=== PATIENT | female | born 1950 ===

== ENCOUNTER 2019-08-14 12:24 | Outpatient (CLI) | payer BC, MEDICAID, SELFPAY ==
--- NOTE | 2019-08-14 12:42 | ECG_ITS ---
NAME OF STUDY: TREADMILL STRESS TEST INDICATION: Chest Pain, EXERCISE DATA: The patient was exercised by Gibran protocol. Baseline heart rate was 71 beats per minute. Baseline blood pressure was 126/98 millimeters of mercury. Target heart rate was 152 beats per minute. Maximum heart rate achieved was 132, which was 86 % of the target heart rate. Maximum blood pressure was 237/96 millimeters of mercury. Total exercise time was 2 minutes 54 seconds. Maximum METs achieved was 4.6, maximum VO2 was 16.1. The reason for ending the test was excellent effort achieved. The patient complained of shortness of breath during the stress test, which then resolved at the end of the test. ELECTROCARDIOGRAM: BASELINE: Sinus rhythm, normal axis, old anterior wall myocardial infarction, no significant ST-T changes at the baseline noted. EXERCISE: At the peak exercise level, No significant ST-T changes suggestive of ischemia noted. RECOVERY: During the recovery period, heart rate dropped appropriately. No significant ST-T changes in the recovery suggestive of ischemia noted. CONCLUSION: 1. Exercise capacity poor. 2. Heart rate response was appropriate. 3. Blood pressure response was hypertensive]. 4. Symptoms not suggestive of ischemia. 5. Electrocardiogram portion of the stress test was not suggestive of ischemia. 6. Nuclear scan will be documented separately. Please note that due to poor exercise capacity and under achievement of METs specificity and sensitivity of the EKG portion of stress test will be low. Electronically Signed On 08-15-2019 15:12:24 PASSENGER AGENT by Cesar Wynn M.D. [email or web address]
[2019-08-14 12:49] VITALS: BMI 32.5
[2019-08-14 12:58] VITALS: BP 168/69; PULSE 98
== END 2019-08-14 12:25 | disposition home or self-care (01) ==
LOC: CDL 12:28
PROVIDERS: Visit Provider Nurse Practitioner Family
DX: R07.9 Chest pain, unspecified (principal)
CPT/HCPCS: 93017

== ENCOUNTER 2020-11-30 09:49 | Outpatient (CLI) | payer MEDICAID, SELFPAY ==
--- NOTE | 2020-11-30 09:53 | MM_ITS ---
WS: [id number] BILATERAL DIGITAL SCREENING MAMMOGRAPHY WITH CAD CLINICAL INFORMATION: SCREENING HISTORY: Screening mammogram. No current complaints. COMPARISON: None. TECHNIQUE: Bilateral CC and MLO views. FINDINGS: Scattered fibroglandular densities bilaterally. A few benign punctate calcifications. 6 mm slightly s piculated focal asymmetric density upper outer right breast posterior depth. Additional 6 mm asymmetr ic density outer right breast. Left breast is unremarkable MM/[place] [id number] IMPRESSION: BI-RADS: 0-Incomplete: Need additional imaging evaluation FOLLOW UP: Need Additional Imaging Recommend diagnostic mammography right breast with spot compression views and u ltrasound right breast
== END 2020-11-30 09:50 | disposition home or self-care (01) ==
PROVIDERS: PCP Family Medicine; Visit Provider Family Medicine
DX: Z12.31 Encounter for screening mammogram for malignant neoplasm of breast (principal)
CPT/HCPCS: 77067

== ENCOUNTER 2020-12-13 14:15 | Outpatient (CLI) | payer MEDICAID, SELFPAY ==
--- NOTE | 2020-12-13 14:25 | US_ITS ---
WS: [id number] RIGHT DIGITAL MAMMOGRAPHY WITH CAD CLINICAL INFORMATION: RIGHT ABNORMAL MAMMOGRAM COMPARISON: November 30, 2020 TECHNIQUE: 3 views of the right breast were obtained. FINDINGS: The right breast is composed of heterogeneous fibroglandular density tissue, which can limit the dete ction of small underlying mass lesions. Stable previously described 6 mm slightly spiculated focal as ymmetric density upper outer right breast posterior depth. Additional 6 mm asymmetric density outer r ight breast. Ultrasound is pending. ULTRASOUND BREAST RIGHT TECHNIQUE: Ultrasound right breast focused area of concern. CLINICAL INFORMATION: RIGHT ABNORMAL MAMMOGRAM FINDINGS: Ultrasound right breast at the 9 to 12:00 position. Dense underlying parenchymal tissue. No cystic or solid lesions. No suspicious findings. No lesions to target for biopsy. US/US breast RT limited* [id number] BI-RADS: 2-Benign FOLLOW UP: 1 Year Follow-up Recommend return to annual screening mammography.
== END 2020-12-13 14:16 | disposition home or self-care (01) ==
LOC: RADSHAW 14:17
PROVIDERS: PCP Family Medicine; Visit Provider Family Medicine
DX: R92.8 Other abnormal and inconclusive findings on diagnostic imaging of breast (principal)
CPT/HCPCS: 76642; 77065

== ENCOUNTER → 2021-01-13 12:10 | Outpatient (BNVA) | payer MEDICAID, SELFPAY | PROVIDERS: PCP Family Medicine; Visit Provider Surgery | DX: Z12.11 Encounter for screening for malignant neoplasm of colon (principal); Z20.822 Contact with and (suspected) exposure to COVID-19 | CPT/HCPCS: 87635 ==

== ENCOUNTER 2021-01-19 07:01 | Day surgery (SDC) | payer MEDICAID, SELFPAY ==
[2021-01-17 13:42] VITALS: BMI 32.5
[2021-01-19 07:34] VITALS: BP 157/87; PULSE 55; RESP 18; TEMP 36.2; O2SAT 99
--- NOTE | 2021-01-19 07:36 | ANES.PREANE2 ---
Pre-Anesthetic Assessment Pre-Anesthetic Assessment: Height/Weight: Height 1.63 m Weight 86.183 kg Proposed Procedure: Operation Date: 01/19/21 08:30 Proposed Procedures p Colonoscopy 58276 z12.11(Not Applicable) - Chaz Bermeo MD Was Beta Finn taken within 24 hours: Yes Was Clonidine taken within 24 hours: N/A Social: Social History: No alcohol and No tobacco Exam: Pre-Anes Outpt Exam: alert, oriented x 3, clear to auscultation bilaterally and regular rate & rhythm Airway: Submandibular: WNL Cervical ROM: WNL MP: 3 Dentition: Full CV/HEM: CV/HEM: HTN Metabolic: Metabolic: DM Anesthetic Plan: ASA status: 2 Anesthesia: MAC Risk of > 500 ml blood loss (7ml/kg in children): No Data Anesthesia Cardiac Studies: No Data to Display
[2021-01-19] MEDS: sodium chloride 0.9% 1,000 ML 30 ML IV (07:44)
[2021-01-19 07:48] LABS: Glucose Point of Care 215 mg/dL (70-110)
--- NOTE | 2021-01-19 08:26 | P.HP_ITS ---
Same Day Surgery H&P Indication for Procedure/HPI DATE OF PROCEDURE: January 19, 2021 CHIEF COMPLAINT/INDICATIONFOR SURGICAL PROCEDURE: Screening colonoscopy PREOP DIAGNOSIS: Screening colonoscopy PLANNED PROCEDRUE: Operation Date: 01/19/21 08:30 Proposed Procedures p Colonoscopy 67527 z12.11(Not Applicable) - Chaz Bermeo MD This is a pleasant 70-year-old female patient presents to my practice for screening colonoscopy, patient denies any bleeding per rectum or history of colon cancer. Most of the history was obtained from the daughter as the patient speaks Malawian/Urdu and the daughter was the main pad machine offbearer. ROS All systems have been reviewed negative except as per the above or per problem list Medications/Allergies* Home Medications Medication Instructions Recorded Confirmed Type glipizide 10 mg PO DAILY 12/01/20 01/17/21 History metformin 500 mg tablet,extended 500 mg PO BID 12/01/20 01/17/21 History release 24hr linagliptin [Tradjenta] 5 mg PO DAILY 01/17/21 01/17/21 History lisinopril 20 mg PO DAILY 01/17/21 01/17/21 History metoprolol tartrate 50 mg PO DAILY 01/17/21 01/17/21 History Allergies/Adverse Reactions Allergy/AdvReac Type Severity Reaction Status Date / Time No Known Allergies Allergy Unverified 01/19/21 08:31 Current Medications: Generic Name Dose Route Start Last Admin Trade Name Freq PRN Reason Stop Dose Admin Sodium Chloride 1,000 mls @ 30 mls/hr 01/19/21 07:15 01/19/21 07:44 Sodium Chloride 0.9% IV 01/20/21 07:14 30 mls/hr .Q24H [place] Administration Pertinent Exam Findings alert, oriented x 3, clear to auscultation bilaterally, regular rate & rhythm and procedure specific exam findings (Abdominal examination nontender nondistended soft) Recommendations Surgery/Procedure today (Colonoscopy with possible biopsy) Other Plans: Plan of care; After thorough history and physical examination and reviewing the chart, plan to perform screening colonoscopy. I discussed with the patient in details the risks,benefits,alternatives and indications.The risk of aspiration, bleeding, soft tissue injury, perforation of the colon and other potential concomitant complications were explained to the patient in details,also the potential need for Laproscoy/Laparotomy to repair any related complications including but not limited to colectomy and or Closotomy.The patient understood this well and did agree to proceed. Rationale was carefully and clearly discussed with the patient.Appropriate informed consent have been reviewed and signed All questions have been answered and all concerns have been addressed to patient's satisfaction. Verbal and written Instructions were given to the patient for colonoscopy prep Coding Level of Care Code Acute Head Filter Tank Tender Helper for Barrera Taylor
[2021-01-19 09:00] VITALS: BP 104/53; PULSE 59; RESP 19; TEMP 36.6; O2SAT 97
[2021-01-19 09:14] VITALS: BP 135/73; PULSE 52; RESP 18; O2SAT 99
--- NOTE | 2021-01-19 17:07 | ANE.PACU2 ---
Inpatient post-anesthesia follow up: Airway intact: Yes Vital signs: Temperature 97.9 F Pulse Rate 52 Respiratory Rate 18 Blood Pressure 135/73 Pulse Oximetry 99 Oxygen Delivery Me thod Room Air Oxygen Flow Rate Fraction of Inspir ed Oxygen Hydration adequate: Yes Nausea and vomiting: No Pain level: 1 Mental status: Baseline
== END 2021-01-19 09:25 | disposition home or self-care (01) ==
PROVIDERS: PCP Family Medicine; Visit Provider Surgery
PROC: 0DJD8ZZ Inspection of Lower Intestinal Tract, Via Natural or Artificial Opening Endoscopic (ICD-10-PCS; CPT 45378; principal; 2021-01-19 08:30)
DX: Z12.11 Encounter for screening for malignant neoplasm of colon (principal); K63.5 Polyp of colon; I10 Essential (primary) hypertension; E11.9 Type 2 diabetes mellitus without complications
CPT/HCPCS: 36416; 45380; 45385; 82962; 88305; 96360; 96361; J2704; J7030

== ENCOUNTER 2021-06-07 15:26 | Outpatient (CLI) | payer MEDICAID, SELFPAY ==
--- NOTE | 2021-06-07 15:45 | USCV_ITS ---
Lauren Nava Age: 70 Gender: F : 1950 Exam Date: 06/07/2021 16:01 Ordering Phys: Yamileth Alexander MD ([email or web address]) Technologist: SHERYL Exam Location: [facility] – [place] Indication: DYSPNEA BP: 120 / 60 HR: 64 Rhythm: Sinus Technical Quality: Adequate MEASUREMENTS (Male / Female) Normal Values 2D ECHO LV Diastolic Diameter PLAX 3.1 cm 4.2 - 5.9 / 3.9 - 5.3 cm LV Systolic Diameter PLAX 2.1 cm IVS Diastolic Thickness 1.2 cm 0.6 - 1.0 / 0.6 - 0.9 cm IVS Systolic Thickness 1.5 cm LVPW Diastolic Thickness 1.4 cm 0.6 - 1.0 / 0.6 - 0.9 cm LVPW Systolic Thickness 1.4 cm RV Chamber Size 2.5 cm LVOT Diameter 2.0 cm LV Ejection Fraction 2D Teich 62.8 % LV Ejection Fraction MOD 2C 69.7 % LV Ejection Fraction 2C AL 71.1 % LA Diameter 3.7 cm LA Width 2.7 cm LA Height 3.9 cm RA Width 4.2 cm RA Height 3.9 cm Aorta at Sinotubular Diameter 1.9 cm M-MODE Aortic Annulus Diameter 2.4 cm LA Ao Ratio MM 1.7 MV E Point Septal Separation 0.5 cm DOPPLER AV Peak Velocity 161.0 cm/s LVOT Peak Velocity 104.0 cm/s AV Area Cont Eq vti 2.3 cm squared AV Area Cont Eq pk 2.0 cm squared MV Area PHT 3.5 cm squared Mitral E to A Ratio 0.9 MV E' Velocity 44.5 cm/s Mitral E to MV E' Ratio 14.5 Mitral E to LV E' Lateral Ratio 13.4 Mitral E to LV E' Septal Ratio 15.9 TR Peak Velocity 238.0 cm/s TR Peak Gradient 22.7 mmHg TV Peak E Velocity 55.0 cm/s Right Atrial Pressure 3.0 mmHg Pulmonary Artery Systolic Pressu 25.7 mmHg PV Peak Velocity 106.3 cm/s RV Acceleration Time 0.2 s RV Ejection Time 0.4 s RV AcT/ET 0.5 FINDINGS Left Ventricle Normal left ventricular size and systolic function, EF 66 %. Mild left ventricular hypertrophy. Grade I/IV diastolic dysfunction (abnormal relaxation filling pattern), normal to mildly elevated filling pressures. Right Ventricle The right ventricle is normal in size and function. Right Atrium Upper limit of normal size Left Atrium Upper limit of normal size Mitral Valve Morphology could not be delineated well Aortic Valve Thickened aortic valve. Tricuspid Valve Morphology could not be delineated well Pulmonic Valve Pulmonic valve not well visualized. Pericardium No pericardial effusion. Aorta Normal ascending aorta dimension. CONCLUSIONS Normal left ventricular size and systolic function, EF 66 %. Mild left ventricular hypertrophy. Grade I/IV diastolic dysfunction (abnormal relaxation filling pattern), normal to mildly elevated filling pressures. Segmental wall motion analysis difficult Both atria, appears to be upper limit of normal size. Thickened aortic valve. There is no pericardial effusion. Technically difficult study because of the poor ultrasonic window Dr Yamileth Alexander MD FACC (Electronically Signed) Final Date: 08 June 2021 18:49 S
== END 2021-06-07 15:27 | disposition home or self-care (01) ==
LOC: RAD 15:28
PROVIDERS: PCP Family Medicine; Visit Provider Internal Medicine Cardiovascular Disease
DX: R06.00 Dyspnea, unspecified (principal); R07.89 Other chest pain; I35.8 Other nonrheumatic aortic valve disorders
CPT/HCPCS: 93306

== ENCOUNTER → 2021-07-04 13:00 | Outpatient (BNVA) | payer MEDICAID, SELFPAY | PROVIDERS: PCP Family Medicine; Visit Provider Internal Medicine | DX: E11.69 Type 2 diabetes mellitus with other specified complication (principal); E78.5 Hyperlipidemia, unspecified; Z79.84 Long term (current) use of oral hypoglycemic drugs; Z79.899 Other long term (current) drug therapy | CPT/HCPCS: 99204 ==

== ENCOUNTER → 2021-10-03 11:26 | Outpatient (BNVA) | payer MEDICAID, SELFPAY | PROVIDERS: PCP Family Medicine; Visit Provider Internal Medicine | DX: E11.69 Type 2 diabetes mellitus with other specified complication (principal); E78.2 Mixed hyperlipidemia; Z79.84 Long term (current) use of oral hypoglycemic drugs | CPT/HCPCS: 99214 ==

== ENCOUNTER → 2022-01-02 10:29 | Outpatient (BNVA) | payer MEDICAID, SELFPAY | PROVIDERS: PCP Family Medicine; Visit Provider Internal Medicine | DX: E11.69 Type 2 diabetes mellitus with other specified complication (principal); E78.2 Mixed hyperlipidemia; E78.5 Hyperlipidemia, unspecified; E55.9 Vitamin D deficiency, unspecified; Z79.84 Long term (current) use of oral hypoglycemic drugs | CPT/HCPCS: 99214 ==

== ENCOUNTER → 2022-04-03 11:07 | Outpatient (BNVA) | payer MEDICAID, SELFPAY | PROVIDERS: PCP Family Medicine; Visit Provider Internal Medicine | DX: E11.69 Type 2 diabetes mellitus with other specified complication (principal); E78.2 Mixed hyperlipidemia; E55.9 Vitamin D deficiency, unspecified; E78.5 Hyperlipidemia, unspecified; Z79.84 Long term (current) use of oral hypoglycemic drugs | CPT/HCPCS: 99214 ==

== ENCOUNTER → 2022-07-04 09:00 | Outpatient (BNVA) | payer MEDICAID, SELFPAY | PROVIDERS: PCP Family Medicine; Visit Provider Internal Medicine | DX: E11.69 Type 2 diabetes mellitus with other specified complication (principal); E78.2 Mixed hyperlipidemia; E55.9 Vitamin D deficiency, unspecified; E78.5 Hyperlipidemia, unspecified; E04.1 Nontoxic single thyroid nodule; Z79.84 Long term (current) use of oral hypoglycemic drugs | CPT/HCPCS: 99214 ==

== ENCOUNTER → 2022-08-03 09:52 | Outpatient (BNVA) | payer MEDICAID, SELFPAY | PROVIDERS: PCP Family Medicine; Visit Provider Internal Medicine Cardiovascular Disease | DX: R42 Dizziness and giddiness (principal); I49.1 Atrial premature depolarization; I49.3 Ventricular premature depolarization; R00.0 Tachycardia, unspecified | CPT/HCPCS: 93225 ==

== ENCOUNTER 2022-08-28 07:01 | Outpatient (CLI) | payer MEDICAID, SELFPAY ==
--- NOTE | 2022-08-28 07:15 | US_ITS ---
WS: [id number] ULTRASOUND THYROID TECHNIQUE: Ultrasound of the thyroid. CLINICAL INFORMATION: thyroid nodule COMPARISON: None. FINDINGS: Thyroid: Right and left thyroid lobes are normal in size and echotexture. Right thyroid lobe: 3.2 cm x 1.5 cm x 1.5 cm Small hypoechoic RIGHT thyroid nodule in the upper pole with a few echogenic calcifications. Nodule m easures 7.4 x 3.9 x 7.5 mm. Left thyroid lobe: 3.7 cm x 1.2 cm x 1.3 cm. Isthmus: 0.3 mm. Prominent submandibular lymph nodes with preserved fatty hilum measuring 1.5 x 0.9 cm in the RIGHT a nd 2.0 x 1.5 cm in the LEFT. US/US thyroid [id number] IMPRESSION: 1. Small hypoechoic RIGHT thyroid nodule in the upper pole with a few echogeni c calcifications. Nodule measures 7.4 x 3.9 x 7.5 mm. Recommend 12 month follow -up. 2. No nodules LEFT thyroid. 3. Prominent submandibular lymph nodes with preserved fatty hilum measuring 1 .5 x 0.9 cm in the RIGHT and 2.0 x 1.5 cm in the LEFT. Recommend clinical corre lation. These can be followed up with contrast-enhanced neck CT if indicated.
== END 2022-08-28 07:02 | disposition home or self-care (01) ==
LOC: RAD 07:04
PROVIDERS: PCP Family Medicine; Visit Provider Internal Medicine
DX: E04.1 Nontoxic single thyroid nodule (principal)
CPT/HCPCS: 76536

== ENCOUNTER 2022-09-05 11:31 | Outpatient (CLI) | payer MEDICAID, SELFPAY ==
--- NOTE | 2022-09-05 11:39 | MR_ITS ---
WS: [id number] MRA HEAD TECHNIQUE: Axial 3-D TOF images obtained with axial images and axial, sagittal, and coronal 2-D refor matted images. CLINICAL INFORMATION: VERTEBROBASILAR INSUFFICIENCY/OTHER PERIPHERAL VERTIGO COMPARISON: None. FINDINGS: Distal vertebral arteries are patent. Basilar artery is patent. Normal vascularity to the [employer]RA[employer] MARKET OPERATOR territo ry bilaterally. Both ICAs are patent at the skull base. Normal vascularity to the SAMANTHA and MCA territories bilaterally . No evidence of proximal flow limiting stenosis or aneurysm. MR/MR angio head wo con [id number] IMPRESSION: Normal intracranial MRA.
== END 2022-09-05 11:32 | disposition home or self-care (01) ==
PROVIDERS: PCP Family Medicine; Visit Provider Internal Medicine
DX: H53.9 Unspecified visual disturbance (principal); H81.399 Other peripheral vertigo, unspecified ear
CPT/HCPCS: 70544

== ENCOUNTER 2022-09-15 15:06 | Outpatient (CLI) | payer MEDICAID, SELFPAY ==
--- NOTE | 2022-09-15 15:15 | MR_ITS ---
WS: [id number] MRI BRAIN WITH HIGH-RESOLUTION IMAGING THROUGH THE INTERNAL AUDITORY CANALS WITHOUT CONTRAST HISTORY: VERTEBROBASILAR INSUFFICIENCES/VISUAL DISTURBANCES/VERTIGO COMPARISON: None available. TECHNIQUE: Multiplanar, multisequence imaging is performed through the brain. Additional 3 mm imaging performed in multiple planes through the internal auditory canal. No postcontrast imaging done as IV access was not obtained. No acute intracranial hemorrhage, midline shift, edema or mass effect. Mild atrophy. Symmetric atrophy with very mild small vessel ischemic disease. No prior infarct. Ventr icles and extra-axial spaces are very mildly prominent on the basis of atrophy. Ventricles and extra-axial spaces are normal. No inferior displacement of cerebellar tonsils. Clivus and pituitary gland are normal. Internal and external auditory canals: Unremarkable. Cranial nerves VII and VIII complexes: Unremarkable without IV contrast. No signal abnormality or mas s effect. Cerebellopontine angles: Normal. LEFT parotid mass measures 12 x 6 mm. Slightly lobulated in the superficial parotid gland. Recommend ultrasound evaluation. Paranasal sinuses: Mucous retention cyst RIGHT maxillary sinus. Mastoid air cells: Normal. Calvarium and scalp: Normal. MR/MR iac's wo con [id number] IMPRESSION: 1. No signal abnormality or mass noted along the internal auditory canals. No IV access was obtainable. Study was performed without IV contrast. 2. Mild cerebral atrophy and small vessel ischemic disease. 3. Lobulated superficial LEFT parotid mass measures 12 x 6 mm. Recommend follo w-up ultrasound.
== END 2022-09-15 15:07 | disposition home or self-care (01) ==
PROVIDERS: PCP Family Medicine; Visit Provider Internal Medicine
DX: H53.9 Unspecified visual disturbance (principal); H81.399 Other peripheral vertigo, unspecified ear; G31.9 Degenerative disease of nervous system, unspecified; I67.82 Cerebral ischemia; R22.0 Localized swelling, mass and lump, head
CPT/HCPCS: 70551

== ENCOUNTER → 2022-10-04 10:48 | Outpatient (BNVA) | payer MEDICAID, SELFPAY | PROVIDERS: PCP Family Medicine; Visit Provider Internal Medicine | DX: E11.69 Type 2 diabetes mellitus with other specified complication (principal); E78.2 Mixed hyperlipidemia; E55.9 Vitamin D deficiency, unspecified; E78.5 Hyperlipidemia, unspecified; E04.1 Nontoxic single thyroid nodule; Z79.84 Long term (current) use of oral hypoglycemic drugs | CPT/HCPCS: 99214 ==

== ENCOUNTER 2022-10-17 14:40 | Outpatient (CLI) | payer MEDICAID, SELFPAY ==
--- NOTE | 2022-10-17 14:52 | US_ITS ---
WS: [id number] ULTRASOUND SOFT TISSUES LEFT parotid. HISTORY: PAROTID MASS, LEFT COMPARISON: MRI 09/15/2022. TECHNIQUE: 2-D and color Doppler imaging is submitted. There is a hypoechoic mass with slight through transmission in the LEFT parotid gland. This appears t o be within the superficial portion of the parotid gland and corresponds to the abnormality seen on t he recent MRI. Mass measures 1.3 x 1.4 x 0.6 cm. Slightly lobulated contour. This does not appear to be a lymph node. There is an additional more superficial similar hypoechoic nodule measuring 0.4 cm i n diameter. No additional abnormalities are identified. US/US soft tissue head neck [id number] IMPRESSION: Superficial LEFT parotid hypoechoic mass measures 1.3 x 1.4 x 0.6 cm. Consider evaluation by ENT. Consider Warthin's tumor. Imaging cannot differentiate betwe en benign and neoplastic etiologies.
== END 2022-10-17 14:41 | disposition home or self-care (01) ==
PROVIDERS: PCP Family Medicine; Visit Provider Family Medicine
DX: K11.8 Other diseases of salivary glands (principal)
CPT/HCPCS: 76536

== ENCOUNTER 2022-10-18 09:26 | Outpatient (CLI) | payer MEDICAID, SELFPAY ==
--- NOTE | 2022-10-18 09:43 | XR_ITS ---
WS: [id number] EXAMINATION: XR foot RT 2V [id number] REASON FOR EXAM: R ACHILLES TENDONITIS/PAIN SWELLING COMPARISON: None available. ORDER DATE: 10/18/2022 9:50 AM TECHNIQUE: 3 views of the right foot were obtained. X-RAY FINDINGS: There are no fractures or dislocations there are prominent degenerative changes involving the through out the midtarsal region. No focal abnormal soft tissue swelling. Joint spaces demonstrate mild diffu se narrowing. Hammertoe changes involving some of the mid toes. 1 cm sized plantar calcaneal spur and smaller dorsal calcaneal spur. XR/XR foot RT 2V [id number] IMPRESSION: No fractures or dislocations of the right foot. Generalized degenerative change s as noted.
== END 2022-10-18 09:27 | disposition home or self-care (01) ==
PROVIDERS: PCP Family Medicine; Visit Provider Family Medicine
DX: M76.61 Achilles tendinitis, right leg (principal); M19.071 Primary osteoarthritis, right ankle and foot
CPT/HCPCS: 73620

== ENCOUNTER → 2023-01-10 10:47 | Outpatient (BNVA) | payer MEDICAID, SELFPAY | PROVIDERS: PCP Family Medicine; Visit Provider Internal Medicine | DX: E11.69 Type 2 diabetes mellitus with other specified complication (principal); E78.2 Mixed hyperlipidemia; E55.9 Vitamin D deficiency, unspecified; E04.1 Nontoxic single thyroid nodule; Z79.84 Long term (current) use of oral hypoglycemic drugs | CPT/HCPCS: 99214 ==

== ENCOUNTER 2023-01-11 13:31 | Outpatient (CLI) | payer MEDICAID, SELFPAY ==
--- NOTE | 2023-01-11 13:44 | US_ITS ---
WS: [id number] ULTRASOUND SOFT TISSUE NECK INDICATION: LEFT parotid mass TECHNIQUE: Ultrasound LEFT parotid COMPARISON: October 17, 2022 MRI September 15, 2022 FINDINGS: T2 hyperintense Superficial LEFT parotid mass previously visualized on the September 15, 2022 M RI. Hypoechoic lobulated partially cystic appearing LEFT parotid lesion measuring 1.3 x 1.3 x 0.6 cm unch anged in appearance compared to previous. Adjacent intraparotid lymph node. This remains indeterminan t and recommend further evaluation with contrast-enhanced neck CT to assess enhancement and ENT evalu ation. Previously described hypoechoic 4 mm adjacent lesion is unchanged. US/US soft tissue head neck [id number] IMPRESSION: Again seen is the lobulated hypoechoic partially cystic LEFT paroti d lesion unchanged since the prior examinations. This is nonspecific and recomm end further evaluation with contrast-enhanced neck CT and ENT evaluation. Benign and malignant parotid lesions are considerations.
== END 2023-01-11 13:32 | disposition home or self-care (01) ==
PROVIDERS: PCP Family Medicine; Visit Provider Family Medicine
DX: K11.8 Other diseases of salivary glands (principal)
CPT/HCPCS: 76536

== ENCOUNTER → 2023-01-29 10:15 | Outpatient (BNVA) | payer MEDICAID, SELFPAY | PROVIDERS: PCP Family Medicine; Visit Provider Podiatrist Foot & Ankle Surgery | DX: M76.61 Achilles tendinitis, right leg | CPT/HCPCS: 99203 ==

== ENCOUNTER 2023-04-03 08:28 | Outpatient (CLI) | payer MEDICAID, SELFPAY ==
[2023-04-03 09:36] LABS: Alanine Aminotransferase 21 U/L (0-33); Albumin Level 4.4 g/dL (3.5-5.2); Alkaline Phosphatase 83 U/L (35-105); Anion Gap 13.2 (5-19); Aspartate Amino Transferase 20 U/L (0-32); Blood Urea Nitrogen 12 mg/dL (8-23); Calcium 9.4 mg/dL (8.5-10.5); Carbon Dioxide 26 mmol/L (22-29); Chloride 101 mmol/L (98-107); Chol HDL Ratio 4.29 mg/dL (0.0-4.40); Cholesterol 236 mg/dL (0-200); Glucose 190 mg/dL (65-115); HDL Cholesterol 55 mg/dL (60-100); LDL Cholesterol Calculated 143 mg/dL (50-129); Osmolality Calculated 287 mOsm/kg (285-295); Potassium 4.2 mmol/L (3.5-5.1); Sodium 136 mmol/L (136-145); Total Bilirubin 0.3 mg/dL (0.15-1.2); Total Protein 7.4 g/dL (6.6-8.7); Triglycerides 191 mg/dL (0-150)
[2023-04-03 09:42] LABS: Estmated Average Glucose 189; Hemoglobin A1C 8.2 % (4.0-6.0)
[2023-04-03 09:45] LABS: Creatinine Urine, Random 96 mg/dL (28-217); Microalbum Creatinine Ratio Ur 10 mg/dL (0-20); Microalbumin Random Urine 1 ug/dL (0-20)
== END 2023-04-03 08:29 | disposition home or self-care (01) ==
PROVIDERS: PCP Family Medicine; Visit Provider Internal Medicine
DX: E11.9 Type 2 diabetes mellitus without complications (principal)
CPT/HCPCS: 80053; 80061; 82044; 83036

== ENCOUNTER → 2023-04-16 10:58 | Outpatient (BNVA) | payer MEDICAID, SELFPAY | PROVIDERS: PCP Family Medicine; Visit Provider Internal Medicine | DX: E78.2 Mixed hyperlipidemia; E11.69 Type 2 diabetes mellitus with other specified complication; E55.9 Vitamin D deficiency, unspecified; E78.5 Hyperlipidemia, unspecified; E04.1 Nontoxic single thyroid nodule; Z79.84 Long term (current) use of oral hypoglycemic drugs | CPT/HCPCS: 99214 ==

== ENCOUNTER 2023-07-05 07:57 | Outpatient (CLI) | payer MEDICAID, SELFPAY ==
[2023-07-05 08:37] LABS: Alanine Aminotransferase 21 U/L (0-33); Albumin Level 4.4 g/dL (3.5-5.2); Alkaline Phosphatase 87 U/L (35-105); Aspartate Amino Transferase 19 U/L (0-32); Blood Urea Nitrogen 10 mg/dL (8-23); Calcium 9.7 mg/dL (8.5-10.5); Carbon Dioxide 26 mmol/L (22-29); Chloride 101 mmol/L (98-107); Chol HDL Ratio 2.77 mg/dL (0.0-4.40); Cholesterol 166 mg/dL (0-200); Globulin 2.9 g/dL (1.3-4.6); Glucose 190 mg/dL (65-115); HDL Cholesterol 60 mg/dL (60-100); LDL Cholesterol Calculated 78 mg/dL (50-129); Osmolality Calculated 286 mOsm/kg (285-295); Sodium 136 mmol/L (136-145); Total Bilirubin 0.5 mg/dL (0.15-1.2); Total Protein 7.3 g/dL (6.6-8.7); Triglycerides 142 mg/dL (0-150)
[2023-07-05 08:40] LABS: Anion Gap 13.3 (5-19); Potassium 4.3 mmol/L (3.5-5.1)
[2023-07-05 08:47] LABS: Creatinine Urine, Random 131 mg/dL (28-217); Microalbum Creatinine Ratio Ur 8 mg/dL (0-20); Microalbumin Random Urine 1 ug/dL (0-20)
[2023-07-05 09:30] LABS: Estmated Average Glucose 200; Hemoglobin A1C 8.6 % (4.0-6.0)
== END 2023-07-05 07:58 | disposition home or self-care (01) ==
LOC: LAB 07:58
PROVIDERS: PCP Family Medicine; Visit Provider Internal Medicine
DX: E11.9 Type 2 diabetes mellitus without complications (principal)
CPT/HCPCS: 36415; 80053; 80061; 82044; 83036

== ENCOUNTER → 2023-08-03 09:54 | Outpatient (BNVA) | payer MEDICAID, SELFPAY | PROVIDERS: PCP Family Medicine; Visit Provider Internal Medicine | DX: E78.2 Mixed hyperlipidemia (principal); E11.69 Type 2 diabetes mellitus with other specified complication; E55.9 Vitamin D deficiency, unspecified; E04.1 Nontoxic single thyroid nodule; Z79.84 Long term (current) use of oral hypoglycemic drugs | CPT/HCPCS: 99214 ==

== ENCOUNTER 2023-10-08 07:59 | Outpatient (CLI) | payer MEDICAID, SELFPAY ==
[2023-10-08 08:52] LABS: Estmated Average Glucose 174; Hemoglobin A1C 7.7 % (4.0-6.0)
[2023-10-08 08:55] LABS: Alanine Aminotransferase 19 U/L (0-33); Alkaline Phosphatase 82 U/L (35-105); Anion Gap 15.5 (5-19); Aspartate Amino Transferase 17 U/L (0-32); Blood Urea Nitrogen 11 mg/dL (8-23); Calcium 9.4 mg/dL (8.5-10.5); Carbon Dioxide 24 mmol/L (22-29); Chloride 102 mmol/L (98-107); Chol HDL Ratio 3.11 mg/dL (0.0-4.40); Cholesterol 174 mg/dL (0-200); Glucose 187 mg/dL (65-115); HDL Cholesterol 56 mg/dL (60-100); LDL Cholesterol Calculated 89 mg/dL (50-129); LDL HDL Ratio 1.59 RATIO (0.00-3.22); Osmolality Calculated 288 mOsm/kg (285-295); Potassium 4.5 mmol/L (3.5-5.1); Sodium 137 mmol/L (136-145); Total Bilirubin 0.4 mg/dL (0.15-1.2); Triglycerides 143 mg/dL (0-150)
[2023-10-08 08:57] LABS: Creatinine Urine, Random 74 mg/dL (28-217); Microalbum Creatinine Ratio Ur 14 mg/dL (0-20); Microalbumin Random Urine 1 ug/dL (0-20)
== END 2023-10-08 08:00 | disposition home or self-care (01) ==
LOC: LAB 08:00
PROVIDERS: PCP Family Medicine; Visit Provider Internal Medicine
DX: E11.69 Type 2 diabetes mellitus with other specified complication (principal); E78.2 Mixed hyperlipidemia; E78.5 Hyperlipidemia, unspecified
CPT/HCPCS: 36415; 80053; 80061; 82044; 83036

== ENCOUNTER → 2023-11-23 08:37 | Outpatient (BNVA) | payer MEDICAID, SELFPAY | PROVIDERS: PCP Family Medicine; Visit Provider Internal Medicine | DX: E78.2 Mixed hyperlipidemia (principal); E11.69 Type 2 diabetes mellitus with other specified complication; E55.9 Vitamin D deficiency, unspecified; E78.5 Hyperlipidemia, unspecified; E04.1 Nontoxic single thyroid nodule; Z79.84 Long term (current) use of oral hypoglycemic drugs; Z79.85 Long-term (current) use of injectable non-insulin antidiabetic drugs | CPT/HCPCS: 99214 ==

== ENCOUNTER 2024-02-20 08:40 | Outpatient (CLI) | payer MEDICARE, MEDICAID, SELFPAY ==
[2024-02-20 09:43] LABS: Estmated Average Glucose 180; Hemoglobin A1C 7.9 % (4.0-6.0)
[2024-02-20 09:51] LABS: Alanine Aminotransferase 17 U/L (0-33); Albumin Level 4.2 g/dL (3.5-5.2); Alkaline Phosphatase 77 U/L (35-105); Anion Gap 13.7 (5-19); Aspartate Amino Transferase 17 U/L (0-32); Blood Urea Nitrogen 12 mg/dL (8-23); Calcium 9.6 mg/dL (8.5-10.5); Carbon Dioxide 27 mmol/L (22-29); Chloride 101 mmol/L (98-107); Chol HDL Ratio 3.62 mg/dL (0.0-4.40); Cholesterol 188 mg/dL (0-200); Globulin 2.8 g/dL (1.3-4.6); Glucose 181 mg/dL (65-115); HDL Cholesterol 52 mg/dL (60-100); LDL Cholesterol Calculated 96 mg/dL (50-129); LDL HDL Ratio 1.85 RATIO (0.00-3.22); Osmolality Calculated 288 mOsm/kg (285-295); Potassium 4.7 mmol/L (3.5-5.1); Sodium 137 mmol/L (136-145); Total Bilirubin 0.5 mg/dL (0.15-1.2); Triglycerides 201 mg/dL (0-150)
[2024-02-20 09:54] LABS: Creatinine Urine, Random 90 mg/dL (28-217); Microalbum Creatinine Ratio Ur 11 mg/dL (0-20); Microalbumin Random Urine 1 ug/dL (0-20)
== END 2024-02-20 08:41 | disposition home or self-care (01) ==
PROVIDERS: PCP Family Medicine; Visit Provider Internal Medicine
DX: E78.2 Mixed hyperlipidemia (principal); E11.69 Type 2 diabetes mellitus with other specified complication
CPT/HCPCS: 36415; 80053; 80061; 82044; 83036

== ENCOUNTER → 2024-02-26 08:55 | Outpatient (BNVA) | payer MEDICARE, OTHER, MEDICAID, SELFPAY | PROVIDERS: PCP Family Medicine; Visit Provider Internal Medicine | DX: E11.69 Type 2 diabetes mellitus with other specified complication (principal); E78.2 Mixed hyperlipidemia; E55.9 Vitamin D deficiency, unspecified; E78.5 Hyperlipidemia, unspecified; E04.1 Nontoxic single thyroid nodule; Z79.4 Long term (current) use of insulin; Z79.84 Long term (current) use of oral hypoglycemic drugs | CPT/HCPCS: 99214 ==

== ENCOUNTER 2024-03-12 14:17 | Outpatient (CLI) | payer MEDICARE, MEDICAID, SELFPAY ==
--- NOTE | 2024-03-12 14:28 | XR_ITS ---
WS: [id number] SCREENING DEXA SCAN [employer] CLINICAL INFORMATION: POSTMENOPAUSAL COMPARISON: None. FINDINGS: The L1-L4 bone mineral density measures 1.120 g/cm2. This corresponds to a T score score of -0.5 Left femoral neck bone mineral density measures 0.937 g/cm2. This corresponds to a T score of -0.6 Right femoral neck bone mineral density measures 0.902 g/cm2. This corresponds to a T score -0.8 Mean femoral neck bone mineral density measures 0.919 g/cm2. This corresponds to a T score of -0.7 XR/XR DEXA axial skeleton* [id number] IMPRESSION: Normal bone mineralization. Patient's FRAX calculated 10 year probability for major osteoporotic fracture i s 9.9% and osteoporotic hip fracture is 1.7%.
== END 2024-03-12 14:18 | disposition home or self-care (01) ==
LOC: RAD 14:18
PROVIDERS: PCP Family Medicine; Visit Provider Family Medicine
DX: Z13.820 Encounter for screening for osteoporosis (principal); Z78.0 Asymptomatic menopausal state
CPT/HCPCS: 77080

== ENCOUNTER → 2024-05-15 14:49 | Outpatient (BNVA) | payer MEDICARE, MEDICAID, SELFPAY | PROVIDERS: PCP Family Medicine; Referring Provider Family Medicine; Visit Provider Nurse Practitioner Family | DX: L72.0 Epidermal cyst (principal); L57.0 Actinic keratosis; L57.8 Other skin changes due to chronic exposure to nonionizing radiation; L81.4 Other melanin hyperpigmentation; D22.5 Melanocytic nevi of trunk | CPT/HCPCS: 99203 ==

== ENCOUNTER 2024-06-02 07:47 | Outpatient (CLI) | payer MEDICARE, MEDICAID, SELFPAY ==
[2024-06-02 08:59] LABS: Basophils # 0.1 10^3/uL (0.0-0.1); Basophils % 1.5 %; Eosinophils # 0.3 10^3/uL (0.0-0.8); Eosinophils % 3.5 %; Hematocrit 40.7 % (36-47); Lymphocytes # 3.1 10^3/uL (0.8-4.8); Lymphocytes % 38.8 %; Mean Corpuscular Hemoglobin 26.9 pg (27-33); Monocytes # 0.6 10^3/uL (0.2-0.9); Monocytes % 6.8 %; Neutrophils # 3.95 10^3/uL (1.8-7.7); Nucleated Red Blood Cells % 0 %; Platelet Count 290 10^3/cmm (157-399); Red Blood Count 4.68 10^6/uL (3.85-5.65); Red Cell Distribution Width 13.5 % (12.1-15.1); White Blood Count 8.06 10^3/uL (3.29-11.43)
[2024-06-02 09:08] LABS: Alanine Aminotransferase 14 U/L (0-33); Alkaline Phosphatase 79 U/L (35-105); Anion Gap 13.3 (5-19); Aspartate Amino Transferase 15 U/L (0-32); Blood Urea Nitrogen 12 mg/dL (8-23); Calcium 9.6 mg/dL (8.5-10.5); Carbon Dioxide 25 mmol/L (22-29); Chloride 98 mmol/L (98-107); Chol HDL Ratio 3.65 mg/dL (0.0-4.40); Cholesterol 186 mg/dL (0-200); Glucose 164 mg/dL (65-115); HDL Cholesterol 51 mg/dL (60-100); LDL Cholesterol Calculated 102 mg/dL (50-129); Osmolality Calculated 277 mOsm/kg (285-295); Potassium 4.3 mmol/L (3.5-5.1); Sodium 132 mmol/L (136-145); Total Bilirubin 0.4 mg/dL (0.15-1.2); Triglycerides 164 mg/dL (0-150)
[2024-06-02 09:35] LABS: Creatinine Urine, Random 101 mg/dL (28-217); Microalbum Creatinine Ratio Ur 10 mg/dL (0-20); Microalbumin Random Urine 1 ug/dL (0-20)
[2024-06-02 09:51] LABS: Estmated Average Glucose 189; Hemoglobin A1C 8.2 % (4.0-6.0)
== END 2024-06-02 07:48 | disposition home or self-care (01) ==
LOC: LAB 07:49
PROVIDERS: PCP Family Medicine; Visit Provider Internal Medicine
DX: R23.3 Spontaneous ecchymoses (principal); E11.69 Type 2 diabetes mellitus with other specified complication; E78.2 Mixed hyperlipidemia
CPT/HCPCS: 36415; 80053; 80061; 82044; 83036; 85025

== ENCOUNTER → 2024-06-04 09:14 | Outpatient (BNVA) | payer MEDICARE, MEDICAID, SELFPAY | PROVIDERS: PCP Family Medicine; Visit Provider Internal Medicine | DX: E78.2 Mixed hyperlipidemia (principal); E11.69 Type 2 diabetes mellitus with other specified complication; E55.9 Vitamin D deficiency, unspecified; E04.1 Nontoxic single thyroid nodule; Z79.84 Long term (current) use of oral hypoglycemic drugs; Z79.85 Long-term (current) use of injectable non-insulin antidiabetic drugs | CPT/HCPCS: 99214 ==

== ENCOUNTER 2024-06-30 16:14 | Outpatient (CLI) | payer MEDICARE, MEDICAID, SELFPAY ==
--- NOTE | 2024-06-30 16:24 | US_ITS ---
WS: [id number] ULTRASOUND SOFT TISSUES LEFT parotid gland HISTORY: PAROTID MASS COMPARISON: 01/11/2023, 10/17/2022 TECHNIQUE: 2-D and color Doppler imaging is submitted. Patient has a known previously described parotid gland mass. LEFT parotid gland is identified and con tains a complex cystic nodule with a solid component. The entire complex measures 1.5 x 0.9 x 0.9 cm. Very similar in appearance as compared to the prior study. No increased vascularity. This more solid component may be an intraparotid lymph node. The more cystic component is more posterior. US/US soft tissue head neck [id number] IMPRESSION: Continued LEFT parotid mass containing both cystic and solid components. The so lid component may be an intraparotid lymph node. The solid may be a cystic neop lasm. Similar in size to 10/17/2022. For further evaluation neck CT with IV cont rast can be obtained.
== END 2024-06-30 16:15 | disposition home or self-care (01) ==
PROVIDERS: PCP Family Medicine; Visit Provider Family Medicine
DX: D37.030 Neoplasm of uncertain behavior of the parotid salivary glands (principal)
CPT/HCPCS: 76536

== ENCOUNTER → 2024-07-28 12:49 | Outpatient (BNVA) | payer MEDICARE, MEDICAID, SELFPAY | PROVIDERS: PCP Family Medicine; Visit Provider Dermatology | DX: L72.0 Epidermal cyst (principal) | CPT/HCPCS: 10060 ==

== ENCOUNTER 2024-08-11 15:53 | Outpatient (CLI) | payer MEDICARE, MEDICAID, SELFPAY ==
--- NOTE | 2024-08-11 16:00 | US_ITS ---
WS: [id number] THYROID ULTRASOUND HISTORY: thyroid nodule COMPARISON: 08/28/2022, 10/17/2022, 06/30/2024 Right lobe: 1.4 cm x 1.4 cm x 3.9 cm (w x ap x l). Volume: 3.7 cm3. Small caliber gland with multiple colloid cysts. No solid nodule or increased vascularity. Colloid cysts are less than a centimeter. Left lobe: 1.1 cm x 1.5 cm x 3.1 cm (w x ap x l). Volume: 2.4 cm3. Small caliber thyroid. Mildly coarse echotexture and heterogeneous. No solid mass. There are a few very tiny colloid cysts. Isthmus: 0.3 cm. US/US thyroid [id number] IMPRESSION: TI-RADS 2; no suspicious nodules. No FNA. No ultrasound follow-up recommended b y TI-RADS criteria.
== END 2024-08-11 15:54 | disposition home or self-care (01) ==
PROVIDERS: PCP Family Medicine; Visit Provider Internal Medicine
DX: E04.1 Nontoxic single thyroid nodule (principal); R93.89 Abnormal findings on diagnostic imaging of other specified body structures
CPT/HCPCS: 76536

== ENCOUNTER 2024-09-01 07:45 | Outpatient (CLI) | payer MEDICARE, MEDICAID, SELFPAY ==
[2024-09-01 08:41] LABS: Alanine Aminotransferase 20 U/L (0-33); Albumin Level 4.4 g/dL (3.5-5.2); Alkaline Phosphatase 90 U/L (35-105); Aspartate Amino Transferase 18 U/L (0-32); Blood Urea Nitrogen 14 mg/dL (8-23); Calcium 9.6 mg/dL (8.5-10.5); Carbon Dioxide 23 mmol/L (22-29); Chloride 101 mmol/L (98-107); Chol HDL Ratio 3.66 mg/dL (0.0-4.40); Cholesterol 205 mg/dL (0-200); Globulin 2.7 g/dL (1.3-4.6); Glucose 208 mg/dL (65-115); HDL Cholesterol 56 mg/dL (60-100); LDL Cholesterol Calculated 106 mg/dL (50-129); LDL HDL Ratio 1.89 RATIO (0.00-3.22); Osmolality Calculated 285 mOsm/kg (285-295); Sodium 134 mmol/L (136-145); Total Bilirubin 0.5 mg/dL (0.15-1.2); Total Protein 7.1 g/dL (6.6-8.7); Triglycerides 215 mg/dL (0-150)
[2024-09-01 08:43] LABS: Anion Gap 14.5 (5-19); Estmated Average Glucose 177; Hemoglobin A1C 7.8 % (4.0-6.0); Potassium 4.5 mmol/L (3.5-5.1)
[2024-09-01 08:46] LABS: Creatinine Urine, Random 218 mg/dL (28-217); Microalbum Creatinine Ratio Ur 18 mg/dL (0-20); Microalbumin Random Urine 4 ug/dL (0-20)
== END 2024-09-01 07:46 | disposition home or self-care (01) ==
LOC: LAB 07:47
PROVIDERS: PCP Family Medicine; Visit Provider Internal Medicine
DX: E78.2 Mixed hyperlipidemia (principal); E11.69 Type 2 diabetes mellitus with other specified complication
CPT/HCPCS: 36415; 80053; 80061; 82044; 83036

== ENCOUNTER → 2024-09-04 09:04 | Outpatient (BNVA) | payer MEDICARE, MEDICAID, SELFPAY | PROVIDERS: PCP Family Medicine; Visit Provider Internal Medicine | DX: E78.2 Mixed hyperlipidemia (principal); E11.69 Type 2 diabetes mellitus with other specified complication; E55.9 Vitamin D deficiency, unspecified; E78.5 Hyperlipidemia, unspecified; E04.1 Nontoxic single thyroid nodule; R21 Rash and other nonspecific skin eruption | CPT/HCPCS: 99214 ==

== ENCOUNTER → 2024-09-17 10:44 | Outpatient (BNVA) | payer MEDICARE, MEDICAID, SELFPAY | PROVIDERS: PCP Family Medicine; Visit Provider Nurse Practitioner Family | DX: L82.1 Other seborrheic keratosis (principal); D18.01 Hemangioma of skin and subcutaneous tissue; D69.2 Other nonthrombocytopenic purpura; D23.71 Other benign neoplasm of skin of right lower limb, including hip; L82.0 Inflamed seborrheic keratosis; R20.8 Other disturbances of skin sensation; L53.8 Other specified erythematous conditions; Z78.9 Other specified health status; L29.89 Other pruritus; L57.0 Actinic keratosis | CPT/HCPCS: 17000; 17110; 99213 ==

== ENCOUNTER → 2024-12-25 14:13 | Outpatient (BNVA) | payer MEDICARE, MEDICAID, SELFPAY | PROVIDERS: PCP Family Medicine; Visit Provider Dermatology | DX: L72.0 Epidermal cyst (principal) | CPT/HCPCS: 99213 ==

== ENCOUNTER 2025-02-20 08:15 | Outpatient (CLI) | payer MEDICARE, MEDICAID, SELFPAY ==
[2025-02-20 09:11] LABS: Creatinine Urine, Random 93 mg/dL (28-217); Microalbum Creatinine Ratio Ur 11 mg/dL (0-20)
[2025-02-20 09:14] LABS: Alanine Aminotransferase 19 U/L (0-33); Albumin Level 4.3 g/dL (3.5-5.2); Alkaline Phosphatase 85 U/L (35-105); Anion Gap 13.8 (5-19); Aspartate Amino Transferase 19 U/L (0-32); Blood Urea Nitrogen 10 mg/dL (8-23); Calcium 9.4 mg/dL (8.5-10.5); Carbon Dioxide 25 mmol/L (22-29); Chloride 102 mmol/L (98-107); Cholesterol 174 mg/dL (0-200); Globulin 2.7 g/dL (1.3-4.6); Glucose 177 mg/dL (65-115); HDL Cholesterol 54 mg/dL (60-100); Osmolality Calculated 285 mOsm/kg (285-295); Potassium 4.8 mmol/L (3.5-5.1); Sodium 136 mmol/L (136-145); Total Protein 7.0 g/dL (6.6-8.7); Triglycerides 206 mg/dL (0-150)
[2025-02-20 13:10] LABS: Estmated Average Glucose 197; Hemoglobin A1C 8.5 % (4.0-6.0)
== END 2025-02-20 08:16 | disposition home or self-care (01) ==
LOC: LAB 08:18
PROVIDERS: PCP Family Medicine; Visit Provider Internal Medicine
DX: E11.69 Type 2 diabetes mellitus with other specified complication (principal)
CPT/HCPCS: 80053; 80061; 82044; 83036

== ENCOUNTER → 2025-02-25 09:59 | Outpatient (BNVA) | payer MEDICARE, MEDICAID, SELFPAY | PROVIDERS: PCP Family Medicine; Visit Provider Internal Medicine | DX: E78.2 Mixed hyperlipidemia (principal); E11.69 Type 2 diabetes mellitus with other specified complication; E55.9 Vitamin D deficiency, unspecified; E04.1 Nontoxic single thyroid nodule; R21 Rash and other nonspecific skin eruption | CPT/HCPCS: 99214 ==